=== PATIENT | male | born 1990 | race Caucasian/White ===

== ENCOUNTER 2022-04-11 09:11 | Emergency (ER) | payer OTHER, SELFPAY ==
[2022-04-11 09:12] VITALS: BP 150/88; PULSE 77; RESP 16; TEMP 36.4; O2SAT 100; BMI 29.1
[2022-04-11] MEDS: Amox/Clavulanate 875 MG Tablet PO (09:53)
[2022-04-11] MEDS: Naproxen 500 MG Tablet PO (09:53)
--- NOTE | 2022-04-11 11:17 | ED.VIS.DENTA ---
HPI History of Present Illness Chief Complaint: Dental Narrative Narrative: 32-year-old male presenting with dental pain. He states he cracked this a few days ago while eating some Halloween candy. He states he has a dentist but was unable to get in. He tried to schedule an emergency dental visit but was unable to. He states initially the pain was not as severe but is progressively getting worse. He does not any facial swelling. No problems swallowing or breathing. No fevers. PFSH PFSH Medical History no medical history Home Medications amoxicillin 250 mg-potassium clavulanate 125 mg tablet 1 tab PO DAILY #20 tabs 04/11/22 [Rx Last Taken Unknown] hydrocodone-acetaminophen 5-325mg 5mg-325mg 1 tab PO Q6H PRN pain 3 days #10 tabs 04/11/22 [Rx Last Taken Unknown] naproxen 500 mg tablet (Naprosyn) 500 mg PO BID PRN pain #20 tabs 04/11/22 [Rx Last Taken Unknown] Allergy/AdvReac Type Severity Reaction Status Date / Time No Known Allergies Allergy Verified 04/11/22 09:13 Surgical History no surgical history Social History Smoking Status: Never smoker ROS ROS ED Constitutional Constitutional ED: Denies chills, fever(s) or sweats Eyes Eyes: Denies blurry vision or change in vision ENT ENT ED: Reports other Details: Dental pain ; Denies ear pain or sore throat Cardiovascular Cardiovascular: Denies chest pain, palpitations or racing heartbeat Respiratory/Chest Respiratory/Chest: Denies cough, dyspnea or sputum Gastrointestinal Gastrointestinal: Denies abdominal pain, constipation, diarrhea, nausea or vomiting Genitourinary Genitourinary ED: Denies dysuria, hematuria or urinary frequency Musculoskeletal Musculoskeletal: Denies arthralgias, myalgias or neck pain Integumentary Denies abscess, Abrasions or rash Neurologic Neurologic: Denies headache(s), paresthesias or weakness Psychiatric Psychiatric: Denies anxiety, depression, suicidal ideation or suicidal thoughts Endocrine Endocrinology: Denies polydipsia or polyuria EXAM Physical Exam Const Vital Signs: 04/11/22 09:12 Temperature 97.6 F L Temperature Source Temporal Pulse Rate 77 Respiratory Rate 16 Blood Pressure 150/88 H Blood Pressure Mean 108 Pulse Ox 100 Oxygen Delivery Method Room Air Positive well nourished General Appearance ED: NAD HEENT HEENT Narrative: Dental percussion tenderness to tooth #5. No facial swelling. Oropharynx patent without stridor. Tongue is not swollen. No sublingual edema. Mouth ED: Yes oral and palatal mucosa abnormal Mouth: oral and palatal mucosa abnormal Neck no lymphadenopathy Resp normal respiratory effort Cardio regular rate and regular rhythm Neuro oriented x3 and CN's II-XII intact bilaterally Sensorium / Orientation: alert Psych mental status grossly normal MDM MDM MDM Narrative Medical decision making narrative: Patient with percussion tenderness and dental fracture reported. There is percussion tenderness to tooth #5 although I do not see an Alvarez type fracture. There is some dental decay in the central portion of this and I suspect an apical abscess in this region given the patient's pain. Patient was started on Naprosyn and Augmentin here in the ER. He is given a dental referral sheet. He also has a dentist he can follow-up with on Tuesday. I did write him for a few [place] should his pain become worse. He is counseled to try to avoid using [place] if he can. Patient discharged home in stable condition. Impression: 1. Dental pain 2. Dental Lab Data Attestation: I reviewed the patient's lab results. Discharge Plan Triage Chief Complaint: Dental ED Provider: Keon Uribe Dx/Rx/DC Orders Instructions: ED Dental Pain Prescriptions: New hydrocodone-acetaminophen 5-325 mg tablet 1 tab PO Q6H PRN (Reason: pain) 3 Days Qty: 10 0RF amoxicillin-pot clavulanate 250-125 mg tablet 1 tab PO DAILY Qty: 20 0RF naproxen [Naprosyn] 500 mg tablet 500 mg PO BID PRN (Reason: pain) Qty: 20 0RF Primary Care Provider: Care Physician,No Primary Referrals: Care Physician,No Primary [Primary Care Provider] - Disposition Disposition: Home, Self Care Discharge Date/Time: 04/11/22 10:20
== END 2022-04-11 10:20 | disposition home or self-care (01) ==
PROVIDERS: Emergency Provider Student in an Organized Health Care Education/Training Program; Visit Provider Student in an Organized Health Care Education/Training Program
DX: K08.89 Other specified disorders of teeth and supporting structures (principal); K02.9 Dental caries, unspecified
CPT/HCPCS: 99283

== ENCOUNTER 2023-05-06 09:47 | Emergency (ER) | payer BC, SELFPAY ==
[2023-05-06 09:48] VITALS: BP 130/102; PULSE 81; RESP 14; TEMP 36.8; O2SAT 99; BMI 25.6
--- NOTE | 2023-05-06 10:22 | EDS_ITS ---
HPI History of Present Illness Chief Complaint: Dizziness Informant: patient Onset/Context/Timing Onset: Yesterday Context: Gradual Onset Timing: Waxes and wanes Quality: Paranoid Location: Generalized Worsened by: Nothing Relieved by: Nothing Narrative Narrative: Patient presents with dizziness that began yesterday. Patient states it has been waxing and waning. Patient states he has been off of his medications recently due to financial reasons. Patient states he picked up his prescriptions today but has not started them yet. Patient states he feels paranoid at times. Patient states nothing seems to make it worse and nothing makes it any better. Patient admits to subjective fevers and chills. Patient also admits to shortness of breath and cough. [facility] Medical History Acid reflux Depression Home Medications citalopram 20 mg tablet 20 mg PO DAILY 05/06/23 [History Last Taken Unknown] doxycycline monohydrate 100 mg capsule 100 mg PO BID #20 CAPSULES 05/06/23 [Rx Last Taken Unknown] omeprazole 40 mg capsule,delayed release 40 mg PO DAILY 05/06/23 [History Last Taken Unknown] Allergy/AdvReac Type Severity Reaction Status Date / Time No Known Allergies Allergy Verified 05/06/23 09:48 Surgical History History of nasal surgery Social History Smoking Status: Never smoker ROS [facility] ED Constitutional Constitutional ED: Reports chills, fever(s) and subjective Eyes Eyes: Denies blurry vision or change in vision ENT ENT ED: Reports rhinorrhea and sore throat Cardiovascular Cardiovascular: Denies chest pain or palpitations Respiratory/Chest Respiratory/Chest: Reports cough and dyspnea Gastrointestinal Gastrointestinal: Denies nausea or vomiting Genitourinary Genitourinary ED: Denies dysuria or hematuria Musculoskeletal Musculoskeletal: Denies back pain or neck pain Integumentary Denies abscess or rash Neurologic Neurologic: Reports headache(s); Denies weakness Allergic/Immunologic Allergic/Immunologic ED: Denies mouth swelling or urticaria EXAM Physical Exam Const Vital Signs: 05/06/23 09:48 05/06/23 10:13 05/06/23 11:41 Temperature 98.2 F Temperature Source Temporal Pulse Rate 81 Pulse Rate [Lying] 58 L Pulse Rate [Sitting (for 1 minute prior to obtaining)] 52 L Pulse Rate [Standing (for 1 minute prior to obtaining)] 60 Respiratory Rate 14 Respiratory Effort Normal Respiratory Pattern Normal Blood Pressure 130/102 H Blood Pressure [Lying] 142/92 H Blood Pressure [Sitting (for 1 minute prior to obtaining)] 138/91 H Blood Pressure [Standing (for 1 minute prior to obtaining)] 152/102 H Blood Pressure Mean 111 Blood Pressure Mean [Lying] 108 Blood Pressure Mean [Sitting (for 1 minute prior to obtaining)] 106 Blood Pressure Mean [Standing (for 1 minute prior to obtaining)] 118 Pulse Ox 99 Oxygen Delivery Method Room Air Positive well nourished and well developed General Appearance ED: well developed and NAD HEENT Reports moist mucous membranes Neck supple and no JVD Chest Wall inspection of chest normal and palpation of chest normal Resp normal respiratory effort and clear to auscultation bilaterally Cardio regular rate and regular rhythm GI non-tender and non-distended Palpation: soft Extremity normal to inspection Neuro oriented x3, CN's II-XII intact bilaterally and no sensory deficits noted Sensorium / Orientation: alert Motor Exam: strength 5/5 throughout Psych mental status grossly normal MDM MDM MDM Narrative Medical decision making narrative: Differential diagnosis includes medication withdrawal, electrolyte abnormality, dehydration, infection, and anxiety. CBC will be obtained to assess for leukocytosis and anemia. Basic metabolic profile will be obtained to assess for electrolyte abnormality and renal function. Urinalysis will be obtained to assess for urinary tract infection and hematuria. Chest x-ray will be obtained to assess for pneumonia and pneumothorax. Lab Data Attestation: I reviewed the patient's lab results. Lab results narrative: CBC was reviewed. Hemoglobin was slightly elevated at 17.7. The remainder is within normal limits. Basic metabolic profile was reviewed and was within normal limits. Urinalysis was reviewed. There is no evidence of urinary tract infection or hematuria. Labs: Laboratory Results - last 24 hr 05/06/23 05/06/23 10:43 12:20 WBC 6.1 RBC 5.98 Hgb 17.7 H Hct 53.3 MCV 89.1 MCH 29.6 MCHC 33.2 RDW Std Deviation 42.4 RDW Coeff of Constanza 12.9 Plt Count 223 MPV 10.4 Immature Gran % (Auto) 0.200 Neut % (Auto) 34.5 L Lymph % (Auto) 49.4 H [place] % (Auto) 7.7 Eos % (Auto) 7.4 H Baso % (Auto) 0.8 Absolute Neuts (auto) 2.1 Absolute Lymphs (auto) 3.02 Nucleated RBC % 0 Sodium 140 Potassium 4.2 Chloride 108 H Carbon Dioxide 29.0 Anion Gap 3 L BUN 10 Creatinine 0.95 Estim Creat Clear Calc 122.53 Est GFR (MDRD) Af Amer 118 Est GFR (MDRD) Non-Af 98 BUN/Creatinine Ratio 10.5 Glucose 86 Calcium 9.0 Urine Color Yellow Urine Clarity Clear Urine pH 7.0 Ur Specific [place] [employer] 1.005 Urine Protein 15 H Urine Glucose (UA) Normal Urine Ketones 15 H Urine Occult Blood Negative Urine Nitrite Negative Urine Bilirubin Negative Urine Urobilinogen Normal Ur Leukocyte Esterase Negative Urine RBC 0 SEEN Urine WBC 0 SEEN Ur Squamous Epith Cells 0 SEEN Urine Bacteria 0 SEEN Urine Mucus 0 SEEN Radiography Chest X-Ray - ED: 2 View, Read by ED Physician and Read by Radiologist Diagnostic Testing: Clinical Impression(s) from Imaging Studies Chest X-Ray 05/06/23 11:15 IMPRESSION: Lingular infiltrate. Electronically Signed: Balaji Toro MD at 11:53 EST , PA and lateral chest x-ray was obtained. There are 2 views. On my independent interpretation, there is no acute process noted. Bony thorax is normal. There is no pneumothorax noted. There is no cardiomegaly noted. Radiologist also interpreted the x-ray and noted a lingular infiltrate. Treatment and Re-Evaluation :: Patient was given a dose of citalopram here. Patient was given IV fluids and aspirin. Patient was advised of his findings. Patient is feeling better on reevaluation. Patient was given a dose of doxycycline. Patient was given a prescription for doxycycline. Patient was instructed to follow-up with his primary care physician in 5 to 7 days. Patient understood and was agreeable with the plan. All questions were answered. Discharge Plan Triage Chief Complaint: Dizziness ED Provider: Dayday Rocha Dx/Rx/DC Orders Clinical Impression: Anxiety, Pneumonia Instructions: ED Anxiety Reaction, ED Pneumonia (Adult) Prescriptions: New doxycycline monohydrate 100 mg capsule 100 mg PO BID Qty: 20 0RF No Action citalopram 20 mg tablet 20 mg PO DAILY omeprazole 40 mg capsule,delayed release(DR/EC) 40 mg PO DAILY Primary Care Provider: Herberth Sutherland Referrals: Herberth Sutherland MD [Primary Care Provider] - 3-5 Days Care Physician,No Primary [Non-Staff] - Disposition Disposition: Home, Self Care
[2023-05-06 10:54] LABS: Absolute Lymphocyte Count 3.02 X10^3/uL (0.83-4.51); Absolute Neutrophil Count 2.1 X10^3/uL (2.0-7.7); Basophil# 0.05 X10^3/uL; Basophil% 0.8 % (0-1); Eosinophil# 0.45 X10^3/uL; Eosinophils% 7.4 % (0-5); Hematocrit 53.3 % (40-54); Hemoglobin 17.7 g/dL (13.0-16.5); Lymphocyte # 3.02 X10^3/ul (0.83-4.51); Lymphocyte % 49.4 % (19-41); Mean Corp Hgb Conc 33.2 g/dL (32-36); Mean Corpuscular Hgb 29.6 pg (27.0-32.0); Mean Corpuscular Volume 89.1 fL (80-94); Mean Platelet Vol. 10.4 fl (6.2-12.0); Monocyte# 0.47 X10^3/uL; Monocyte% 7.7 % (0-10); NRBC Flagged by Analyzer 0 % (0-5); Neutrophil # 2.11 X10^3/uL (2.7-7.7); Neutrophil % 34.5 % (47-70); Platelet Count 223 K/mm3 (150-450); RBC Distribution Width CV 12.9 % (11.6-14.6); RBC Distribution Width SD 42.4 fl (35.1-43.9); Red Blood Count 5.98 M/mm3 (4.6-6.2); White Blood Count 6.1 K/mm3 (4.4-11.0)
[2023-05-06] MEDS: 0.9% Normal Saline (1000mL) 1,000 ML 1000 ML IV (10:58)
[2023-05-06] MEDS: Aspirin 81 MG TAB.CHEW 324 MG PO (10:59)
[2023-05-06 11:07] LABS: Anion Gap 3 (5-15); BUN 10 mg/dL (7-18); BUN/Creat Ratio 10.5 RATIO (10-20); Chloride 108 mmol/L (98-107); Creatinine, Serum 0.95 mg/dL (0.70-1.30); EST Glomerular Filtration Rate 98 mL/min (>60); Est Glom Filt Rate - Afr Amer 118 mL/min (>60); Estimated Creatinine Clearance 122.53 ml/min; Glucose 86 mg/dL (74-106); Potassium 4.2 mmol/L (3.5-5.1); Sodium Level 140 mmol/L (136-145)
--- NOTE | 2023-05-06 11:15 | RAD_ITS ---
STUDY: X-RAY CHEST REASON FOR EXAM: Male, 33 years old. 7 day history of cough and shortness of breath. TECHNIQUE: PA and lateral views of the chest. COMPARISON: None. FINDINGS: EKG lead are seen. Lingular infiltrate. There is no demonstrated pleural abnormality. Normal size heart. Normal mediastinum and nikita. Normal visualized pulmonary arteries. Normal visualized aortic arch and descending thoracic aorta. Normal visualized thoracic spine. Normal visualized ribs, clavicles, and shoulders. There is no demonstrated abnormality of the visualized soft tissue structures of the upper abdomen. RAD/Chest PA and Lateral IMPRESSION: Lingular infiltrate. Electronically Signed: Balaji Toro MD at 11:53 EST ,
[2023-05-06 11:41] VITALS: BP 138/91; BP 142/92; BP 152/102; PULSE 52; PULSE 58; PULSE 60
[2023-05-06] MEDS: Citalopram 20 MG Tablet PO (11:53)
[2023-05-06 12:23] LABS: Bacteria 0 SEEN /hpf (None Seen); Mucous, Urine 0 SEEN /hpf (<or=2+); Red Blood Cells-Urine 0 SEEN /hpf (0-5); Squamous Epithelial Cells - UA 0 SEEN /hpf (0-5); White Blood Cells 0 SEEN /hpf (0-5)
[2023-05-06 12:27] LABS: Color, Urine Yellow (Yellow); Glucose, Dipstick Normal (Normal); Ketone-Dipstick 15 mg/dl (Negative); Leukocyte Esterase-Dipstick Negative /ul (Negative); Nitrite-Dipstick Negative (Negative); Occult Blood-Urine Negative /ul (Negative); Protein-Dipstick 15 mg/dl (Negative); Specific Gravity, Urine 1.005 (1.002-1.030); Urine Bilirubin Dipstick Negative (Negative); Urine Clarity Clear (Clear); Urine Urobilinogen Normal (Normal)
[2023-05-06 13:14] VITALS: BP 128/79; RESP 14; O2SAT 100
[2023-05-06] MEDS: Doxycycline 100 MG CAPSULE PO (13:14)
== END 2023-05-06 13:15 | disposition home or self-care (01) ==
PROVIDERS: Emergency Provider Emergency Medicine; PCP Family Medicine; Visit Provider Emergency Medicine
DX: J18.9 Pneumonia, unspecified organism (principal); F41.9 Anxiety disorder, unspecified
CPT/HCPCS: 71046; 80048; 81001; 85025; 96360; 96361; 99285; J7030; A4216